=== PATIENT | female | born 1990 | race American Indian/Alaskan Native ===

== ENCOUNTER 2018-07-18 16:24 | Emergency (ER) | payer OTHER ==
--- NOTE | 2018-07-18 17:59 | OBHP ---
Datetime: 07/18/2018 17:51 Admit Comment, IP Provider: with IUP at 33+4 weeks based on KHANG 09/01 per patient care in [place] patient presents with complaint of vaginal spotting she moved 3 days ago and has vaginal intercourse yesterday, she reports spotting noted when she us ed the bathroom this morning currently no bleeding no leakage of fluids no contractions + movement POB: G1 2010 FT 6lb 11oz G2 2011 FT 6lb 8oz LMP 11/04, irreg cycles, denies STIs, reports normal paps PMH: stomach ulcers - was taking medication, unknown name PSH: upper endoscopy in 2018 to evaluate for GI ulcers Meds: stomach ulcer medication name unknown, PNV NKDA Fam Hx: denies denies smoking drinking drug use vitals stable EFM toco appropriate for gestational age SSE: no bleeding SVE: C/L/P a/p: vaginal spotting labor preucations discussed recommend patient transfer care to local hospital since she has moved counseled patient to avoid strenuous activity and or intercourse as there is a risk of further spo tting patient reassued plan to DC home Pelvic Type - PN: Adequate Extremities - PN: Not Done Abdomen - PN: Normal Back - PN: Not Done Breast - PN: Not Done Lungs - PN: Not Done Heart - PN: Not Done Thyroid - PN: Not Done Neurologic - PN: Not Done HEENT - PN: Normal General - PN: Normal FHR - Baseline A Provider: 140 Comments, ACOG Physical Exam: normal external genetalia no vaginal bleeding noted cervix closed long and posterior Gestation - Est Wks by US: 33+4 EGA AdmitDate IP: 33.4 Vital Signs Provider: Reviewed; Within Normal Limits IP Chief Complaint: Vaginal bleeding NICHD Variability Prov Fetus A: Moderate 6-25bpm NICHD Accel Fetus A IP Provider: [id number] FHR Category Provider Fetus A: Category I NICHD Decel Fetus A IP Provider: None Dilatation, Provider: C Effacement, Provider: L Station, Provider: -3 Genitourinary Exam: Normal DTRs - PN: Normal
--- NOTE | 2018-07-18 18:08 | OBHP ---
Datetime: 07/18/2018 17:51 Admit Comment, IP Provider: with IUP at 33+4 weeks based on KHANG 09/01 per patient care in [place] patient presents with complaint of vaginal spotting she moved 3 days ago and has vaginal intercourse yesterday, she reports spotting noted when she us ed the bathroom this morning currently no bleeding no leakage of fluids no contractions + movement POB: G1 2010 FT 6lb 11oz G2 2011 FT 6lb 8oz LMP 11/04, irreg cycles, denies STIs, reports normal paps PMH: stomach ulcers - was taking medication, unknown name PSH: upper endoscopy in 2018 to evaluate for GI ulcers Meds: stomach ulcer medication name unknown, PNV NKDA Fam Hx: denies denies smoking drinking drug use vitals stable EFM toco appropriate for gestational age SSE: no bleeding SVE: C/L/P bedside US done: anterior placenta, vertex fetus, FHR+, movements noted a/p: vaginal spotting labor preucations discussed recommend patient transfer care to local hospital since she has moved counseled patient to avoid strenuous activity and or intercourse as there is a risk of further spo tting patient reassued plan to DC home
[2018-07-18 22:26] VITALS: PULSE 89; O2SAT 99
== END 2018-07-18 18:03 | disposition home or self-care (01) ==
LOC: C.EROB 16:24
DX: O46.93 Antepartum hemorrhage, unspecified, third trimester (principal); Z3A.33 33 weeks gestation of pregnancy